=== PATIENT | male | born 1955 | race African-American/Black ===

== ENCOUNTER → 2019-02-10 | Outpatient (CLI) | payer MEDICARE, OTHER ==
--- NOTE | 2019-02-10 13:50 | RAD ---
MR#: [id number] Date of Study: 02/10/2019 Ordering Physician: LYNDSEY CARRINGTON Referring Physician: LUIZ BEAUCHAMP Tech: Latia Joya RT (R) (N) APPROVED REPORT Test Type: Exercise Stress Nurse/Tech: Sierra Bustamante RN Test Indications: Dyspnea Cardiac History: HTN Medications: See Electronic Medical Record Medical History: See Electronic Medical Record Resting ECG: SR Resting Heart Rate: 74 bpm Resting Blood Pressure: 127/79mmHg Pretest Chest Pain: None Nurse/Tech Notes Lungs CTA, S1S2 Consent: The procedure was explained to the patient in lay terms. Informed consent was witnessed. Wili eout was entered into [employer]. History and Stress Test performed by sierra Bustamante RN Stress Symptoms No chest pain or symptoms. POST EXERCISE Reason for Termination: Reached target heart rate Target HR: 131 Max HR: 149 bpm Exercise duration: 9:06 min:sec, 4 Stage Max Blood Pressure: 148/73mmHg Blood Pressure response to exercise: Normal blood pressure response during stress. Heart Rate response to exercise: normal response Chest Pain: No. Arrhythmia: No. ST Change: No. INTERPRETATION Stress EKG Conclusion: No evidence of stress induced EKG changes. Imaging Protocol IMAGE PROTOCOL: Rest Tc-99m/stress Tc-99m 1 day Rest: Stress: Viability: Radiopharm.Tc99m DdxkohuwgUy20o Sestamibi Dose10.5mCi 33mCi Duration 15min. 13min. Img Date 02/10/2019 02/10/2019 Inj-Img [id number]. 60min. Rest Admin Site:IV - Right AntecubitalAdministrator:NICHOLAS Silverman, ARRT (R)(N) Stress Admin Site: IV - Right AntecubitalAdministrator: NICHOLAS Silverman, ARRT (R)(N) STRESS DATA End Diast. Vol.67.0mlAv. Heart Rate78.0bpm End Syst. Vol.15.0mlCO Index BSA0.0L/min Myocardial Lihx706.0gEject. Qwyztzvv16.0% Stress Rates Pk. Fill Rate3.41EDV/secLVtime Pk. Fill 121.41msec Pk. Empty Rate5.32ESV/secLVtime Pk. Pktlw946.59msec /3 Pk. Fill1.99EDV/sec Stress Scores Regional WT0.00Summed WT0.00 Regional WM0.00Summed WM2.00 The rest and stress images show normal perfusion, normal contraction and thickening. LV Perf. Quant 17 Seg. SSS0.00 17 Seg. SRS0.00 17 Seg. SDS0.00 Stress Defect Extent (% LAD)0.00Rest Defect Extent (% LAD)0.00Rev. Defect Extent (% LAD)0.00 Stress Defect Extent (% LCX) 0.00Rest Defect Extent (% LCX)0.00Rev. Defect Extent (% LCX)0.00 Stress Defect Extent (% RCA)0.00Rest Defect Extent (% RCA)0.00Rev. Defect Extent (% RCA)0.00 Stress Defect Extent (% MATT)0.00Rest Defect Extent (% MATT)0.00Rev. Defect Extent (% MATT)0.00 Other Information Quality:Good Risk Assessment: Low Risk Conclusion 1. No evidence of EKG changes with stress testing. 2. Normal perfusion at stress/rest. 3. Low risk study. 4. EF > 60%. Signed by : Albino Dyson, Electronically Approved : 02/10/2019 13:50:06
--- NOTE | 2019-02-10 14:31 | CARD ---
MR#: [id number] Date of Study: 02/10/2019 Ordering Physician: LYNDSEY CARRINGTON, Referring Physician: LYNDSEY CARRINGTON Tech: Camilla Vazquez RDCS APPROVED REPORT EXAM: Two-dimensional and M-mode echocardiogram with Doppler and color Doppler. Other Information Quality : Good INDICATION Exertional Dyspnea 2D DIMENSIONS RVDd2.7 (2.9-3.5cm)Left Atrium(2D)3.1 (1.6-4.0cm) IVSd1.0 (0.7-1.1cm)Aortic Root(2D)2.7 (2.0-3.7cm) LVDd3.7 (3.9-5.9cm)LVOT Diameter1.9 (1.8-2.4cm) PWd1.0 (0.7-1.1cm)LVDs2.5 (2.5-4.0cm) FS (%) 31.3 %SV34.1 ml LVEF(%)60.0 (>50%) Aortic Valve AoV Peak Orlin.133.8cm/sAoV VTI20.0cm AO Peak GR.7.2mmHgLVOT Peak Orlin.124.4cm/s LVOT VTI 20.72cmAO Mean GR.3mmHg MEENA (VMAX)2.33ap1HYS (VTI)2.98cm2 Mitral Valve MV E Xwrfotca68.9cm/sMV DECEL FHZB785yt MV A Hgnxgetv48.4cm/sMV XEJ83fs E/A Ratio1.0MVA (PHT)4.22cm2 TDI E/Lateral E'8.9E/Medial E'10.4 Tricuspid Valve TR P. Lkuigzda644mh/sRAP RDHLMITG1ecTi TR Peak Gr.79jgPpWDPB55czEk Pulmonary Vein S1 Riqzbcus36.4cm/sD2 Piuigegk38.5cm/s LEFT VENTRICLE The left ventricle is normal size. There is normal left ventricular wall thickness. The left ventricu lar systolic function is normal and the ejection fraction is within normal range. The Ejection Fracti on is 60-65%. There is normal LV segmental wall motion. Transmitral Doppler flow pattern is Grade I-a bnormal relaxation pattern. RIGHT VENTRICLE The right ventricle is normal size. The right ventricular systolic function is normal. ATRIA The left atrium size is normal. The right atrium size is normal. The interatrial septum is intact wit h no evidence for an atrial septal defect or patent foramen ovale as noted on 2-D or Doppler imaging. AORTIC VALVE The aortic valve is calcified but opens well. Doppler and Color Flow revealed no significant aortic r egurgitation. There is no significant aortic valvular stenosis. MITRAL VALVE The mitral valve is normal in structure and function. There is no evidence of mitral valve prolapse. There is no mitral valve stenosis. Doppler and Color-flow revealed trace mitral regurgitation. TRICUSPID VALVE The tricuspid valve is normal in structure and function. Doppler and Color Flow revealed trace tricus pid regurgitation. There is mild pulmonary hypertension. The PA pressure was estimated at 36 mmHg. Th ere is no tricuspid valve stenosis. PULMONIC VALVE Doppler and Color Flow revealed mild pulmonic valvular regurgitation. There is no pulmonic valvular s tenosis. GREAT VESSELS The aortic root is normal in size. The ascending aorta is normal in size. The IVC is normal in size a nd collapses >50% with inspiration. PERICARDIAL EFFUSION There is no evidence of significant pericardial effusion. Critical Notification Critical Value: No <Conclusion> The left ventricular systolic function is normal and the ejection fraction is within normal range. Th e Ejection Fraction is 60-65%. There is normal LV segmental wall motion. Doppler and Color Flow revealed trace tricuspid regurgitation. There is mild pulmonary hypertension. The PA pressure was estimated at 36 mmHg. Signed by : Albino Dyson, Electronically Approved : 02/10/2019 14:30:31
== END | disposition home or self-care (01) ==
LOC: NM 09:42
PROVIDERS: ATTEND Internal Medicine Cardiovascular Disease
DX: I08.8 Other rheumatic multiple valve diseases (principal); I27.20 Pulmonary hypertension, unspecified; I10 Essential (primary) hypertension; Z79.01 Long term (current) use of anticoagulants
CPT/HCPCS: 78452; 93017; 93306; A9500

== ENCOUNTER → 2021-07-17 | Outpatient (CLI) | payer MEDICARE, OTHER ==
[~2021-07-17] MED LIST: ASPI-630 PO; ASPI325T11 PO; IBUP-1027 PO; LISI10TA16 PO; MELO7.5T29 PO; OXYC5TAB4 PO; SIMV40TA18 PO; TIZA-75 PO
[2021-07-17 09:41] LABS: ALBUMIN 4.2 g/dL (3.4-5.0); CALCIUM 9.3 mg/dL (8.5-10.1); CREATININE 1.4 mg/dL (0.7-1.3); GFR 61.2; POTASSIUM 5.1 mmol/L (3.5-5.1)
[2021-07-17 10:16] LABS: BASO % 0 % (0-3); EOS # 0.1 x10^3/uL (0.0-0.7); EOS % 2 % (0-3); HEMATOCRIT 44.8 % (39.0-53.0); HEMOGLOBIN 14.6 g/dL (13.0-17.5); LYMPH # 2.1 x10^3/uL (1.0-4.8); LYMPH % 41 % (24-48); MEAN CORPUSCULAR HEMOGLOBIN 29 pg (25-35); MEAN CORPUSCULAR HGB CONC 33 g/dL (31-37); MEAN CORPUSCULAR VOLUME 89 fL (79-100); MONO # 0.6 x10^3/uL (0.0-1.1); MONO % 11 % (0-9); NEUT # 2.3 x10^3/uL (1.8-7.7); NEUT % 46 % (31-73); PLATELET COUNT 220 x10^3/uL (140-400); RED BLOOD COUNT 5.04 x10^6/uL (4.30-5.70); RED CELL DISTRIBUTION WIDTH 13.8 % (11.5-14.5)
[2021-07-17 10:45] LABS: PROTHROMBIN TIME PATIENT 12.9 SEC (11.7-14.0)
--- NOTE | 2021-07-17 13:05 | EKG ---
[facility] [address] [place] [address] Test Date: 2021-07-17 Test Time: 12:41:17 Pat Name: CHANG DIALLO Department: Room: Gender: M Inventory Control Associate: SRIDHAR : 1955 Requested By: HERBERT SANCHEZ Order Number: [id number] Reading MD: Adrien Allison Measurements Intervals [place] Rate: 78 P: 44 [place]: 194 QRS: 66 QRSD: 74 T: 38 QT: 332 QTc: 382 Interpretive Statements SINUS RHYTHM MILD NON SPECIFIC ST CHANGES Electronically Signed On 07-18-2021 9:12:39 CUSTOMER RELATIONS CONSULTANT by Adrien Allison
--- NOTE | 2021-07-17 13:24 | RAD ---
EXAMINATION: XR CHEST 2V CLINICAL HISTORY: Preoperative clearance. EXAM DATE/TIME: 07/17/2021 1:02 PM COMPARISON: None FINDINGS: Lines, Tubes, and Devices: None. Cardiomediastinal Silhouette: Within normal limits. Lungs and Pleura: No evidence of focal airspace consolidation or pleural effusion. Pulmonary vasculat ure unremarkable. Bones and Soft Tissues: Degenerative changes in the thoracic spine. IMPRESSION: No evidence of acute cardiopulmonary abnormality. Electronically signed by: Maurilio Freeman DO (07/17/2021 1:22 PM) JENY
[2021-07-18 01:13] LABS: HEMOGLOBIN A1C 5.8 % (4.8-5.6)
== END ==
LOC: SURGPAT 12:14
PROVIDERS: ATTEND Orthopaedic Surgery
DX: Z01.818 Encounter for other preprocedural examination (principal); M16.11 Unilateral primary osteoarthritis, right hip; I10 Essential (primary) hypertension
CPT/HCPCS: 36415; 71046; 80048; 82040; 82306; 83036; 85025; 85610; 85651; 85730; 87641; 93005

== ENCOUNTER → 2021-08-04 | Outpatient (CLI) | payer MEDICARE, OTHER ==
[2021-08-02 14:55] VITALS: BP 133/90
== END ==
LOC: LAB 10:23
PROVIDERS: ATTEND Orthopaedic Surgery
DX: Z01.812 Encounter for preprocedural laboratory examination (principal); Z20.822 Contact with and (suspected) exposure to COVID-19
CPT/HCPCS: U0003

== ENCOUNTER 2021-08-07 10:36 | Observation (INO) | payer MEDICARE, OTHER ==
[2021-08-02 14:55] VITALS: BP 133/90
[~2021-08-07] VITALS: Ht 175.3 cm; Wt 79.5 kg
[~2021-08-07 10:36] MED LIST changes: +ACETAMINOPHEN 500 MG TABLET PO PRN; -ASPI325T11 PO; +GABAPENTIN 300 MG CAPSULE. PO PRN; +HYDROmorphone 2 MG/ML INJ. IVP PRN; +IV RINGERS,LACTATED 1000ML 1,000 ML IV SCH; +MELOXICAM 7.5 MG TABLET PO PRN; +MORPHINE SULFATE 2 MG/ML INJ. IVP PRN; -OXYC5TAB4 PO; +PROCHLORPERAZINE 10 MG/2 ML VIAL. IVP PRN; +TRANEXAMIC ACID 1,000 MG in IV NS 50ML -- 1ST BAG INJ ONE; +TRANEXAMIC ACID 1,000 MG in IV NS 50ML -- 2ND BAG INJ ONE; +TRANEXAMIC ACID in NS IVPB 50 ML ONE; +TV=62ml MORPHINE 5 MG, KETOROLAC 30 MG, ROPIV, EPI INT ART ONE; +VANCOMYCIN 1 GM VIAL. ONE; +fentaNYL PF VIAL 100 MCG/2 ML VIAL IVP PRN
[2021-08-07] MEDS ORDERED: fentaNYL PF VIAL 100 MCG/2 ML VIAL ONE (12:11)
[2021-08-07] MEDS ORDERED: MIDAZOLAM HCL/PF 2 MG/2 ML VIAL. ONE (12:12)
[2021-08-07] MEDS ORDERED: LIDOCAINE 2% PF 5 ML VIAL. ONE (12:14)
[2021-08-07] MEDS ORDERED: PROPOFOL 50 ML IV ONE (12:15)
--- NOTE | 2021-08-07 12:15 | HP ---
DATE OF SERVICE: 08/07/2021 ADMIT DATE: 08/07/2021 PREOPERATIVE HISTORY AND PHYSICAL BRIEF HISTORY: The patient is here. He is a 65-year-old male here today with complaints of significant right hip pain. He has been unresponsive to conservative therapies and now he has significant pain at night as well as during the day. He is having a lot of difficulty with his activities of daily living. His motion is becoming more limited and he is getting more frustrated by the pain in the hip in the anterior groin region. REVIEW OF SYSTEMS: Unremarkable for other than musculoskeletal complaints according to his hip as well as chronic low back pain and radiculopathy. MEDICAL HISTORY: Hypertension, hyperlipidemia, diabetes, generalized degenerative joint disease, low back pain with radiculopathy. SURGICAL HISTORY: Eye surgery, left and hernia repair x 2. FAMILY HISTORY: Diabetes and cancer. SOCIAL HISTORY: No tobacco use, drinks alcohol approximately 4 times a week. MEDICATIONS: Tizanidine, ibuprofen, aspirin, lisinopril, simvastatin. MEDICATION ALLERGIES: None. PHYSICAL EXAMINATION: He is 69 inches tall, 172 pounds. He has flexion up to 90 degrees of the hip, internal rotation is 5 degrees with external rotation of 15, abduction is about 25-30 degrees maximum. He has a significant antalgic gait. His HEENT is within normal limits other than the left eye. His lung mahmood are clear. His heart is of regular rate and rhythm at this point. Abdomen is soft and nontender. Distal neurovascular status in the right lower extremity is fully intact at this point. IMAGING STUDIES: X-rays do show the significant degenerative joint disease of the right hip. IMPRESSION: 1. Degenerative joint disease, right hip. 2. Medical history as noted. PLAN: At this time, he wishes to undergo a right total hip arthroplasty. We have therefore gone over the risks, complications as well as benefits and expectations of surgery, postoperative protocol and followup. All questions are answered at this point. He will be seen by Anesthesia prior to going back. WOODY/CLARITA MAY: Shawna TID: [id number]
[2021-08-07] MEDS ORDERED: EPINEPHrine 1 MG/ML VIAL ONE (12:23)
[2021-08-07] MEDS ORDERED: DEXTROSE 50% 25 GM / 50ML DISP.SYRIN. IV PRN (13:00)
[2021-08-07] MEDS ORDERED: fentaNYL PF VIAL 100 MCG/2 ML VIAL IVP PRN (13:00)
[2021-08-07] MEDS ORDERED: ZOLPIDEM 5 MG TABLET. PO PRN (13:00)
[2021-08-07] MEDS ORDERED: MORPHINE SULFATE 2 MG/ML INJ. IVP PRN (13:00)
[2021-08-07] MEDS ORDERED: 0.9 % SODIUM CHLORIDE 10 ML DISP.SYRIN. IV PRN (13:00)
[2021-08-07] MEDS ORDERED: IV DEXTROSE 5% 250 ML BAG. IV PRN (13:00)
[2021-08-07] MEDS ORDERED: PROCHLORPERAZINE 5 MG TABLET. PO PRN (13:00)
[2021-08-07] MEDS ORDERED: METOCLOPRAMIDE HCL 10 MG/2 ML VIAL. IVP PRN (13:00)
[2021-08-07] MEDS ORDERED: diphenhydrAMINE 50 MG/ML VIAL IVP PRN (13:00)
[2021-08-07] MEDS ORDERED: CALCIUM CARBONATE 500 MG TAB.CHEW PO PRN (13:00)
[2021-08-07] MEDS ORDERED: TRANEXAMIC ACID in NS IVPB 50 ML ONE (13:15)
[2021-08-07] MEDS ORDERED: PHENYLEPHRINE 10 MG/ML VIAL. ONE (14:28)
[2021-08-07] MEDS ORDERED: ONDANSETRON PF 4 MG/2 ML VIAL. ONE (14:32)
[2021-08-07] MEDS ORDERED: DEXAMETHASONE SOD PHOS 4 MG/ML VIAL ONE (14:32)
[2021-08-07] MEDS ORDERED: KETOROLAC 30 MG/ML VIAL. ONE (14:32)
--- NOTE | 2021-08-07 14:57 | PDOC4 ---
OPERATIVE NOTE Date: Date: Aug 07, 2021 Pre-Op Diagnosis: Severe degenerative joint disease right hip Post-Op Diagnosis: Same Procedure Performed: Right total hip arthroplasty Surgeon: Kobi Anesthesia Type: Spinal with IV sedation Blood Loss: 200 cc Specimans Obtained: Femoral head right hip Findings: See dictation Complications: None HERBERT SANCHEZ Jr. DO Aug 07, 2021 14:57
[2021-08-07 15:45] VITALS: BP 125/76
[2021-08-07] MEDS ORDERED: ALBUMIN HUMAN 5% 500 ML IV ONE ×2 (15:53→16:00)
--- NOTE | 2021-08-07 16:11 | RAD ---
XR PELVIS 1-2V History: Postop FINDINGS/ IMPRESSION: Postsurgical features from right total hip arthroplasty. Acetabular cup and femoral stem components a ppear well seated without evidence of loosening. Normal alignment. Degenerative changes of the left f emoral acetabular joint. Pelvic phleboliths. Expected right hip subcutaneous edema. Electronically signed by: Valentino Finch MD (08/07/2021 4:08 PM) [id number]
--- NOTE | 2021-08-07 16:35 | OP ---
DATE OF SURGERY: 08/07/2021 PREOPERATIVE DIAGNOSIS: Severe degenerative joint disease, right hip. POSTOPERATIVE DIAGNOSIS: Severe degenerative joint disease, right hip. PROCEDURE: Right total hip arthroplasty. SURGEON: Osiel Peace Jr, DO ASBESTOS HANDLER: Shiraz Lopez. ANESTHESIA: Spinal. COMPLICATIONS: None. ESTIMATED BLOOD LOSS: 200 mL. COMPONENTS: Size 52 acetabular shell with an elevated liner, a size 3 femur with a 36 mm head, +0. DESCRIPTION OF PROCEDURE: The patient was taken to the operative suite, given a spinal anesthetic, placed on the hip with the affected hip upright. The right hip was then prepped and draped in a sterile fashion. The anterolateral approach to the hip was undertaken with incision through skin and subcutaneous tissues. This was carefully taken down to the iliotibial band. Superficial bleeding was coagulated using a Bovie knife. The iliotibial band was split in line with the skin incision and retracted anteriorly and posteriorly. This brought us down to the gluteus medius. The gluteus medius and a portion of the minimus were removed. This was only the inferior 1/3-1/2. This was retracted anteriorly and the capsule was then opened up in an H fashion, which revealed the femoral head, which was significantly degenerative. After the hip was then subsequently dislocated one fingerbreadth above the lesser trochanter, the cut was made to remove the head and a portion of the neck. This was measured and noted to be 47 mm. The remainder of the labral tissue was then subsequently removed and then the reaming began on the acetabulum at size 43, 45, 47, 49, 51 and subsequently a 52. At 52, this was noted to be a good bleeding bone in the acetabular side of the joint. This was good positioning overall; therefore, this was impacted and noted to be stable. This was stabilized by 2 screws, one of 30 mm in length and one of 20 mm in length. These had excellent purchase in the bone. Good fixation of the acetabular component. The liner was then placed and impacted and noted to be stable and secure. Attention was then directed to the femur, which was opened up with a stocking and box shop supervisor and was placed in the side bag. The IM guide was then placed. Subsequently, broaching began at size 0 and only continued up to size 3. This was noted to be the most appropriate size, it was very stable within the canal and secure. Therefore, this was trialled with a +0, 36 mm head. This was taken through with good pistoning, full range of motion with no signs of impingement. No signs of instability with extremes of motion; therefore, this was manually dislocated and all trials were removed. Femoral component was then placed. The head was then affixed. This was then relocated again forcefully and then taken through range of motion with extremes of motion and this was extremely stable. Therefore, this was thoroughly irrigated again and then washed with a Betadine solution, which was subsequently irrigated out. The capsule was then reapproximated in an interrupted fashion. The gluteus medius and minimus were reapproximated to their original positions. This was also done in an interrupted fashion. One suture brought the iliotibial band together and this was able to be mobilized; therefore, running stitch was used to close this. As this was done, the superficial tissue and skin was reapproximated. Sterile dressing was applied. The patient was then taken from the operative bed to the postoperative bed, taken to the PACU in stable condition. VINAYAK DR: Shawna TID: [id number]
[2021-08-07] MEDS: FERROUS SULFATE 325 MG TABLET. PO SCH (17:00)
[2021-08-07] MEDS ORDERED: IBUPROFEN 400 MG TABLET. PO PRN (17:15)
[2021-08-07] MEDS: IV NORMAL SALINE 1000ML BAG 1,000 ML IV SCH (17:25)
[2021-08-07 17:30] VITALS: BP 125/76
--- NOTE | 2021-08-07 17:30 | NUR ---
received from recovery. at bedside. he had a block in surgery. he remains numb on soles of feet. he has good motion, sensation and pulses bilateral. denies pain at this time. abductor pillow in place dressing clean and sry
[2021-08-07 18:00] VITALS: BP 119/78
[2021-08-07] MEDS ORDERED: KETOROLAC 30MG VIAL 30 MG, BUPIVACAINE MPF 0.25% 20 ML, EPINEPHrine 0.5 MG in TOTAL VOL... INT ART SCH (18:00)
[2021-08-07 18:30] VITALS: BP 123/70
[2021-08-07] MEDS ORDERED: ASPI325T11 PO (19:04)
[2021-08-07 19:30] VITALS: BP 116/72
[2021-08-07] MEDS: ASPIRIN ENTERIC COATED 325 MG TABLET.DR. PO SCH (21:16)
[2021-08-07] MEDS: SIMVASTATIN 20 MG TABLET PO SCH (21:16)
[2021-08-07] MEDS: oxyCODONE IR 5 MG TABLET PO PRN (21:17)
--- NOTE | 2021-08-07 21:30 | NUR ---
Assisted to recliner. "My booty hurts from laying all day." Roxicodone given. Ate 100% sandwich tray.
[2021-08-07 23:00] VITALS: BP 111/73
[2021-08-08 03:00] VITALS: BP 119/84
[2021-08-08] MEDS: oxyCODONE IR 5 MG TABLET PO PRN (03:38)
[2021-08-08] MEDS: ONDANSETRON PF 4 MG/2 ML VIAL. IVP SCH ×3 (05:35→12:00)
[2021-08-08] MEDS: ONDANSETRON ODT 4 MG TAB.RAPDIS. PO SCH ×3 (05:37→12:00)
[2021-08-08] MEDS: GABAPENTIN 100 MG CAPSULE. PO SCH ×3 (06:00→22:45)
[2021-08-08] MEDS ORDERED: MAGNESIUM HYDROXIDE 2,400 MG/30 ML ORAL.SUSP. PO PRN (06:00)
[2021-08-08 06:53] VITALS: BP 132/85
[2021-08-08] MEDS ORDERED: ASPIRIN 325 MG TABLET PO SCH (08:00)
[2021-08-08] MEDS: ACETAMINOPHEN 500 MG TABLET PO SCH ×3 (08:36→20:58)
[2021-08-08] MEDS: MULTIVITAMIN with MINERAL TABLET. PO SCH (08:36)
[2021-08-08] MEDS: MELOXICAM 7.5 MG TABLET PO SCH (08:36)
[2021-08-08] MEDS: SENNOSIDES/DOCUSATE 8.6/50MG TABLET. PO SCH (08:36)
[2021-08-08] MEDS: ASPIRIN ENTERIC COATED 325 MG TABLET.DR. PO SCH ×2 (08:36→20:58)
[2021-08-08] MEDS: FERROUS SULFATE 325 MG TABLET. PO SCH ×2 (08:37→17:34)
[2021-08-08] MEDS: tiZANidine 4 MG TABLET. PO PRN (08:37)
[2021-08-08 08:40] VITALS: BP 149/89
[2021-08-08] MEDS: LISINOPRIL 10 MG TABLET PO SCH (08:40)
[2021-08-08] MEDS ORDERED: ASPIRIN CHEWABLE 81 MG TABLET. PO SCH (09:00)
--- NOTE | 2021-08-08 09:05 | PDOC ---
Provider Note Date of Service: DATE: 08/08/21 TIME: 09:04 Provider Note Pt seen ,consult dictated.#[id number]. Justifications for Admission Other Justification RAYA BERTRAND MD Aug 08, 2021 09:05
--- NOTE | 2021-08-08 11:31 | CONS ---
DATE OF CONSULTATION: 08/08/2021 REASON FOR ADMISSION TO THE HOSPITAL: Elective admission for right hip total arthroplasty. MEDICAL PROBLEMS: Hypertension, hyperlipidemia and several Hip OA rt side. HISTORY OF PRESENT ILLNESS: This is a 65-year-old male, who was having severe hip pain, did not improve with conservative treatment. He was on pain medications and the patient was seen by orthopedic and was electively admitted for right hip replacement. PAST MEDICAL HISTORY: Hypertension, hyperlipidemia, DJD, radiculopathy. PAST SURGICAL HISTORY: Eye surgery on the left, hernia repair x2. FAMILY HISTORY: Diabetes. SOCIAL HISTORY: Social alcohol 4 times a week. Denies smoking. ALLERGIES: No known allergies. MEDICATIONS: Takes ibuprofen, aspirin, lisinopril, simvastatin and tizanidine. REVIEW OF SYSTEMS: Denies any chest pain, shortness of breath. Feels better. PHYSICAL EXAMINATION: VITAL SIGNS: At the time of admission shows temperature 98, pulse 96, respirations 20, blood pressure 136/92, 94% on room air. HEENT: Head is atraumatic. The patient has an artificial left eye. Oral cavity, no congestion. NECK: Supple. Thyroid not enlarged. CHEST: Symmetrical. CARDIOVASCULAR: S1, S2. LUNGS: Clear. ABDOMEN: Soft. EXTERNAL GENITALIA: No Nichols. RECTUM: Deferred. EXTREMITIES: dressing in the right hip. LABORATORY STUDIES: COVID test negative preop. White count 5, hemoglobin 14, platelets 223. INR 1.0. Electrolytes show sodium 139, potassium 5.1, chloride 101, bicarbonate 27, BUN 12, creatinine 1.4, glucose 110. A1c 5.8. Vitamin D 16. Preop chest x-ray negative. EKG negative. FINAL IMPRESSION: 1. Elective admission for right hip replacement for sever OA, postop day #1. 2. Hypertension. 3. Hyperlipidemia. PLAN: At this time, the patient is doing well postop. Again, we will follow BP stable. ASA for DVT prevention bid. We will follow the patient. Again, thank you, Dr. Peace for allowing me to participate in the care of this patient. CHAD/SACHA/PAULA DR: CHAD/noemi TID: [id number] MIKE
[2021-08-08] MEDS ORDERED: ONDANSETRON ODT 4 MG TAB.RAPDIS. PO PRN (12:00)
[2021-08-08] MEDS ORDERED: ONDANSETRON PF 4 MG/2 ML VIAL. IVP PRN (12:00)
[2021-08-08] MEDS: traMADol 50 MG TABLET PO PRN ×3 (12:46→20:59)
[2021-08-08] MEDS: IV NORMAL SALINE 1000ML BAG 1,000 ML IV SCH (12:49)
[2021-08-08] MEDS ORDERED: BISACODYL 10 MG SUPP.RECT. PR PRN (16:00)
[2021-08-08 19:49] VITALS: BP 98/69
[2021-08-08] MEDS: SIMVASTATIN 20 MG TABLET PO SCH (20:58)
[2021-08-09] MEDS: traMADol 50 MG TABLET PO PRN (01:33)
[2021-08-09] MEDS: ACETAMINOPHEN 500 MG TABLET PO SCH ×3 (03:00→14:12)
[2021-08-09 06:29] VITALS: BP 149/76
[2021-08-09] MEDS: GABAPENTIN 100 MG CAPSULE. PO SCH ×2 (06:30→14:08)
[2021-08-09 06:54] LABS: HEMATOCRIT 33.7 % (39.0-53.0); HEMOGLOBIN 11.3 g/dL (13.0-17.5)
[2021-08-09] MEDS: oxyCODONE IR 5 MG TABLET PO PRN ×2 (08:21→14:08)
[2021-08-09] MEDS: FERROUS SULFATE 325 MG TABLET. PO SCH (08:21)
[2021-08-09] MEDS: ASPIRIN ENTERIC COATED 325 MG TABLET.DR. PO SCH (08:22)
[2021-08-09] MEDS: tiZANidine 4 MG TABLET. PO PRN (08:22)
[2021-08-09] MEDS: MULTIVITAMIN with MINERAL TABLET. PO SCH (08:22)
[2021-08-09] MEDS: SENNOSIDES/DOCUSATE 8.6/50MG TABLET. PO SCH (08:23)
[2021-08-09] MEDS: MELOXICAM 7.5 MG TABLET PO SCH (08:23)
[2021-08-09 08:32] VITALS: BP 125/87
[2021-08-09] MEDS: POLYETHYLENE GLYCOL 3350 17 GM PACKET. PO SCH ×2 (08:32→09:23)
[2021-08-09] MEDS: LISINOPRIL 10 MG TABLET PO SCH (08:32)
--- NOTE | 2021-08-09 09:20 | PDOC ---
PROGRESS NOTES Date of Service: DATE: 08/09/21 TIME: 09:19 Subjective Subjective feels good Objective Objective Vital Signs Date Time Temp Pulse Resp B/P (MAP) Pulse Ox O2 Delivery O2 Flow Rate FiO2 08/09/21 08:32 101 125/87 08/09/21 06:29 98.6 18 100 Room Air 98.6 Intake and Output 08/09/21 07:00 Intake Total 300 ml Output Total 1100 ml Balance -800 ml Intake Oral 300 ml Output Urine Total 1100 ml # Voids 2 Physical Exam Abdomen: Soft Heart: Normal S1, Normal S2 General: Alert Lungs: Clear to auscultation Neck: Supple Assessment Assessment FINAL IMPRESSION: 1. Elective admission for right hip replacement postop day #2. 2. Hypertension. 3. Hyperlipidemia. PLAN: At this time, the patient is doing well postop. plans to d/c home with home health. percocoet for pain asa for dvt prevention Comment Review of Relevant I have reviewed the following items liz (where applicable) has been applied. Labs Laboratory Tests Test 08/09/21 06:05 Hemoglobin 11.3 g/dL (13.0-17.5) Hematocrit 33.7 % (39.0-53.0) Mean Corpuscular Hemoglobin Concent 34 g/dL (31-37) Medications Current Medications Bisacodyl (Dulcolax Supp) 10 mg 1X PRN PRN [place] CONSTIPATION; Start 08/08/21 at 16:00; Stop 08/09/21 at 15:59 Ondansetron HCl (Zofran Odt) 4 mg PRN Q6HRS PRN PO Nausea/vomiting, 1st choice; Start 08/08/21 at 12:00 Ondansetron HCl (Zofran) 4 mg PRN Q6HRS PRN IVP Nausea/vomiting, 1st choice; Start 08/08/21 at 12:00 Polyethylene Glycol (miraLAX PACKET) 17 gm DAILY PO Last administered on 08/09/21at 08:32; Start 08/09/21 at 09:00 Tramadol HCl (Ultram) 50 mg PRN Q4HRS PRN PO MILD-MODERATE PAIN Last admi nistered on 08/09/21at 01:33; Start 08/08/21 at 09:30 Vitals/I & O Vital Sign - Last 24 Hours 2/22/08/08/21 08/08/21 08/08/21 11:00 15:00 16:00 17:34 Resp 20 20 Pulse Ox 100 O2 Delivery Room Air Room Air Room Air 08/08/21 08/08/21 08/08/21 08/08/21 19:49 20:29 20:59 21:28 Temp 97.6 97.6 Pulse 93 Resp 18 18 B/P (MAP) 98/69 (79) Pulse Ox 100 100 O2 Delivery Room Air Room Air Room Air Room Air 08/08/21 08/09/21 08/09/21 08/09/21 23:00 01:33 02:03 06:29 Temp 98.6 98.6 Pulse 104 Resp 18 18 B/P (MAP) 149/76 (100) Pulse Ox 100 100 O2 Delivery Room Air Room Air Room Air Room Air 08/09/21 08:32 Pulse 101 B/P (MAP) 125/87 Intake and Output 08/08/21 08/08/21 08/09/21 15:00 23:00 07:00 Intake Total 300 ml Output Total 1100 ml Balance -800 ml Justifications for Admission Other Justification RAYA BERTRAND MD Aug 09, 2021 09:20
[2021-08-09] MEDS ORDERED: OXYC5TAB4 PO (09:24)
--- NOTE | 2021-08-09 09:27 | SNU/HH DC ---
DISCHARGE WITH HOME HEALTH DISCHARGE INFORMATION: Discharge Date: Aug 09, 2021 Condition on Discharge: Stable CODE STATUS: Code Status: Full HOME HEALTH: Face to Face: I certify this patient is under my care and that I, or a nurse practitioner or annalise acosta's family law legal assistant working with me, had a face to face encounter that meets the physician face to face encounter requirements with this patient on []. Medical Complications: S/P Joint Replacement Group Home For: Assess & Educate Safety RN For Eval/Treatment: Yes Physical Therapy For: Evalulation/Treatment Occupational Therapy For: Evaluation/Treatment Pt Meets Homebound Status: Unsteady balance w/ amb, POST DISCHARGE ORDERS: Activity Instructions for Disc: Activity as tolerated TREATMENT/EQUIPMENT ORDERS: Adaptive Equipment Issued: Walker CERTIFICATION STATEMENT: Certification Statement: Certification Statement: Based on the above finding, I certify that this patient is confined to the home and needs intermittent senior care care, physical therapy and/or speech therapy, or continues to need occupational therapy.~ This patient is under my care, and I have initiated the establishment of the plan of care.~ This patient will be followed by myself or a community physician who will periodically review the plan of care. Home Meds Active Scripts Oxycodone Hcl (OXYCODONE HCL IMMED.RELEASE ) 5 Mg Tablet, 5 MG PO PRN Q4HRS PRN for SEVERE PAIN for 7 Days, TAB Prov:RAYA BERTRAND MD 08/09/21 Reported Medications Aspirin (ASPIRIN EC) 325 Mg Tablet.dr, 1 TAB PO BID for blood thinner, #30 TAB 0 Refills 08/07/21 Simvastatin (SIMVASTATIN) 40 Mg Tablet, 40 MG PO HS for FOR CHOLESTEROL, #30 TAB 0 Refills 08/02/21 Lisinopril (LISINOPRIL) 10 Mg Tablet, 10 MG PO DAILY for FOR HYPERTENSION, #30 TAB 0 Refills 08/02/21 Tizanidine Hcl (TIZANIDINE HCL) 4 Mg Tablet, 4 MG PO TID PRN for MUSCLE SPASMS, TAB 08/02/21 Discontinued Reported Medications Ibuprofen (IBUPROFEN) 400 Mg Tablet, 400 MG PO PRN Q6HRS PRN for INFLAMMATION, TAB 08/02/21 Meloxicam (MELOXICAM) 7.5 Mg Tablet, 7.5 MG PO PRN DAILY PRN for PAIN CONTROL, TAB 08/02/21 RAYA BERTRAND MD Aug 09, 2021 09:27
[2021-08-09] MEDS: IV NORMAL SALINE 1000ML BAG 1,000 ML IV SCH (13:00)
--- NOTE | 2021-08-09 16:15 | NUR ---
Discharge instructions given. Answered questions and concerns. Both patient and spouse verbalized understanding. Pt discharged home with home health. Escorted out by w/c.
--- NOTE | 2021-08-11 17:07 | PATHOLOGY ---
[facility] Accession Number: [id number] . 01 Material submitted: . hip - RIGHT HIP BONE AND TISSUE. Modifiers: right . 01 Clinical history: . RIGHT HIP DEFENERATIVE JOINT DISEASE RIGHT TOTAL HIP ARTHROPLASTY . 02 Diagnosis: Femoral head and neck and additional segments/reamings of bone and cartilage , right total hip arthroplasty: - Advanced degenerative arthritis. (JPM:pit; 08/11/2021) QTP 08/11/2021 1626 Local . 02 Electronically signed: . Daron Gordillo MD, Pathologist NPI- [id number] . 01 Gross description: . The specimen is received in formalin, labeled "Gerard Seamster, right hip bone and tissue". Received is a femoral head with attached femoral neck measuring 4.3 x 4.3 x 5.0 cm in greatest dimensions. The articular surface is pale bates and smooth in appearance with eburnation identified. Moderate osteophytic lipping is present. Sectioning reveals yellow-bates cut surfaces with no grossly distinct nodules or lesions. The specimen is submitted representatively in cassette A1, following decalcification. . Also received within the specimen container are additional fragments of bone admixed with cartilage and bone reamings measuring 6.6 x 5.5 x 1.8 cm in aggregate dimensions. Office Cleaner sections are submitted in cassette A2, following decalcification. (CAA; 08/09/2021) QAC/QAC 08/09/2021 0834 Local . 02 Pathologist provided ICD-10: M16.11 . 02 CPT . 113584, [id number] Specimen Comment: A courtesy copy of this report has been sent to [phone] Specimen Comment: Report sent to Performed at: [address] [facility] [address], [place] [id number] MD Maycol Mares MD Phone: [phone] Performed at: 02 [facility] [address] [place], [place] [id number] MD Daron Gordillo MD Phone: [phone]
== END 2021-08-09 16:15 | disposition still patient (30) ==
LOC: SURG 10:36 → 4 SOUTHEST 12:50 → INTOOBSV 12:50 → 4 SOUTHEST 17:00
PROVIDERS: ADMIT Orthopaedic Surgery; ATTEND Orthopaedic Surgery
DX: M16.11 Unilateral primary osteoarthritis, right hip (principal); Z20.822 Contact with and (suspected) exposure to COVID-19; I10 Essential (primary) hypertension; E78.5 Hyperlipidemia, unspecified; G89.29 Other chronic pain; M54.50 Low back pain, unspecified; E11.9 Type 2 diabetes mellitus without complications; Z79.899 Other long term (current) drug therapy; Z98.890 Other specified postprocedural states; Z79.82 Long term (current) use of aspirin
CPT/HCPCS: 27130; 36415; 72170; 85014; 85018; 86850; 86900; 86901; 88304; 88311; 96365; 96366; 96375; 97116; 97150; 97162; 97165; 97530; 97535; A4213; A4930; A6550; C1755; C1776; G0378; G0379; J0171; J0690; J1100; J1885; J2250; J2270; J2370; J2405; J2704; J2795; J3010; J7030; P9045; J3370